=== PATIENT | female | born 1995 | race Two or more races ===

== ENCOUNTER 2016-12-08 22:23 | Emergency (ER) | payer MEDICAID, OTHER ==
[~2016-12-08] VITALS: Ht 165.1 cm; Wt 102.1 kg
[2016-12-08 23:02] VITALS: BP 145/70
== END 2016-12-09 02:30 | disposition left against medical advice (07) ==
LOC: ER 22:27
DX: M54.5 Low back pain (principal); Z53.21 Procedure and treatment not carried out due to patient leaving prior to being seen by health care provider
CPT/HCPCS: 82962

== ENCOUNTER 2016-12-09 22:21 | Emergency (ER) | payer MEDICAID ==
[~2016-12-09] VITALS: Ht 175.3 cm; Wt 102.1 kg
[2016-12-09 23:04] LABS: Basophils # (auto) 0 uL; Basophils % (auto) 0.1 % (0.0-2.0); DEFINITIVE VIEW TRANSMISSION; Eosinophils # (auto) 0 uL; Eosinophils % (auto) 0.1 % (0.0-7.0); Hematocrit 37.8 % (36.0-46.0); Hemoglobin 12.5 g/dL (12.2-16.2); Lymphocytes # (auto) 1.7 uL; Lymphocytes % (auto) 12.5 % (10.0-50.0); Mean Corpuscular Hemoglobin 26.5 pg (28.0-32.0); Mean Corpuscular Volume 80.2 fL (80.0-100.0); Monocytes # (auto) 1.8 uL; Monocytes % (auto) 12.9 % (0.0-12.0); Neutrophils # (auto) 10.1 uL; Neutrophils % (auto) 74.4 % (37.0-80.0); Platelet Count (auto) 271 10^3/uL (140-450); Red Cell Distribution Width 14.7 % (11.6-16.0); White Blood Cell 13.6 10^3/uL (4.4-10.8)
[2016-12-09 23:14] LABS: Albumin 3.3 g/dL (3.4-5.0); BUN/Creatinine Ratio 9.3; Calcium 8.5 mg/dL (8.5-10.1); Potassium 3.7 mmol/L (3.5-5.1)
[2016-12-09 23:16] LABS: Urine Bilirubin Negative (Negative); Urine Blood TRACE /uL (Negative); Urine Color Yellow (Yellow); Urine Ketone Negative (Negative); Urine Nitrite Negative (Negative); Urine RBC 2 /hpf (0 - 4); Urine Squamous Epithelial Cell FEW /hpf (<5); Urine Urobilinogen Normal (Negative); Urine WBC Clumps PRESENT /hpf (None Seen)
[2016-12-09 23:17] LABS: Bilirubin, Total 0.7 mg/dL (0.2-1.0); Total Protein 7.9 g/dL (6.4-8.2)
[2016-12-09 23:17] LABS: Urine Glucose 2+ mg/dL (Normal)
[2016-12-09 23:47] VITALS: BP 105/68
[2016-12-10] MEDS ORDERED: SODIUM CHLORIDE 0.9% 1,000 ML IV ONE ×2 (00:15)
[2016-12-10] MEDS ORDERED: cefTRIAXone 1GM/50ML D5W 50 ML IV ONE (00:15)
== END 2016-12-10 02:06 | disposition home or self-care (01) ==
LOC: ER 22:25
DX: N93.0 Postcoital and contact bleeding (principal); E10.65 Type 1 diabetes mellitus with hyperglycemia; R81 Glycosuria
CPT/HCPCS: 36415; 74176; 80053; 81001; 81025; 82150; 85025; 96365; 99285; J0696; J7030

== ENCOUNTER 2016-12-28 14:14 | Emergency (ER) | payer OTHER, MEDICAID ==
[~2016-12-28] VITALS: Ht 172.7 cm; Wt 102.1 kg
[2016-12-28 14:40] VITALS: BP 120/71
== END 2016-12-28 18:00 | disposition left against medical advice (07) ==
LOC: ER 14:17
DX: N76.0 Acute vaginitis (principal); Z53.21 Procedure and treatment not carried out due to patient leaving prior to being seen by health care provider

== ENCOUNTER 2017-04-18 13:00 | Emergency (ER) | payer OTHER, MEDICAID ==
[~2017-04-18] VITALS: Ht 175.3 cm; Wt 102.1 kg
[2017-04-18 13:11] VITALS: BP 103/63
[2017-04-18] MEDS ORDERED: LIDOCAINE 1% HCL (LOCAL ANESTH.) INJ 20ML MDV IJ ONE (15:45)
[2017-04-18] MEDS ORDERED: ETHYL CHLORIDE SPRAY TOP ONE (15:45)
== END 2017-04-18 16:07 | disposition home or self-care (01) ==
LOC: ER 13:02 → EDBD 13:02 → ER 16:07
DX: L02.411 Cutaneous abscess of right axilla (principal)
CPT/HCPCS: 10060; 99283; J2001

== ENCOUNTER 2017-04-20 14:58 | Emergency (ER) | payer OTHER, MEDICAID ==
[~2017-04-20] VITALS: Ht 175.3 cm; Wt 102.1 kg
[2017-04-20 15:15] VITALS: BP 104/50
== END 2017-04-20 16:05 | disposition home or self-care (01) ==
LOC: ER 15:03
DX: L02.411 Cutaneous abscess of right axilla (principal); E11.9 Type 2 diabetes mellitus without complications

== ENCOUNTER 2017-08-27 16:54 | Emergency (ER) | payer MEDICAID ==
[~2017-08-27] VITALS: Ht 175.3 cm; Wt 102.1 kg
[2017-08-27 17:51] LABS: Basophils # (auto) 0.1 uL; Basophils % (auto) 0.4 % (0.0-2.0); Eosinophils # (auto) 0 uL; Eosinophils % (auto) 0.2 % (0.0-7.0); Hematocrit 43.1 % (36.0-46.0); Hemoglobin 14.3 g/dL (12.2-16.2); Lymphocytes # (auto) 1.7 uL; Mean Corpuscular Hemoglobin 28.7 pg (28.0-32.0); Mean Corpuscular Hgb Conc. 33.1 g/dL (32.0-36.0); Mean Corpuscular Volume 86.6 fL (80.0-100.0); Mean Platelet Volume 8.9 fL (6.9-10.8); Monocytes # (auto) 0.9 uL; Monocytes % (auto) 6.7 % (0.0-12.0); Neutrophils # (auto) 10.5 uL; Neutrophils % (auto) 79.7 % (37.0-80.0); Platelet Count (auto) 275 10^3/uL (140-450); Red Cell Distribution Width 13.4 % (11.8-14.3); White Blood Cell 13.2 10^3/uL (4.4-10.8)
[2017-08-27 18:16] LABS: Bilirubin, Total 0.4 mg/dL (0.2-1.0); Calcium 9.3 mg/dL (8.5-10.1); Potassium 3.8 mmol/L (3.5-5.1); Total Protein 8.5 g/dL (6.4-8.2)
[2017-08-27] MEDS ORDERED: InsuLIN REG 1unit/0.01ml Soln (100units/ml) IV ONE (19:00)
[2017-08-27] MEDS ORDERED: SODIUM CHLORIDE 0.9% 1,000 ML IV ONE (19:00)
[2017-08-27 20:21] LABS: Urine Bilirubin Negative (Negative); Urine Blood Negative /uL (Negative); Urine Color Yellow (Yellow); Urine Glucose 4+ mg/dL (Normal); Urine Ketone 3+ (Negative); Urine Nitrite POSITIVE (Negative); Urine RBC 10 /hpf (0 - 4); Urine Squamous Epithelial Cell FEW /hpf (<5); Urine Urobilinogen Normal (Negative)
[2017-08-27] MEDS ORDERED: cefTRIAXone 1GM/50ML D5W 50 ML IV ONE (21:15)
[2017-08-28 01:55] VITALS: BP 138/71
== END 2017-08-28 02:17 | disposition home or self-care (01) ==
LOC: ER 17:12
DX: E11.10 Type 2 diabetes mellitus with ketoacidosis without coma (principal); N39.0 Urinary tract infection, site not specified; R42 Dizziness and giddiness; Z79.4 Long term (current) use of insulin
CPT/HCPCS: 36415; 71010; 80053; 81001; 81025; 82010; 82962; 85025; 93005; 96361; 96365; 96375; 99285; J0696; J1815; J7030

== ENCOUNTER 2018-08-29 08:53 | Emergency (ER) | payer MEDICAID ==
[~2018-08-29] VITALS: Ht 175.3 cm; Wt 102.1 kg
[2018-08-29 09:56] VITALS: BP 121/73
== END 2018-08-29 13:03 | disposition home or self-care (01) ==
LOC: ER 08:53
DX: L73.9 Follicular disorder, unspecified (principal); B35.3 Tinea pedis; B07.8 Other viral warts; E11.9 Type 2 diabetes mellitus without complications

== ENCOUNTER 2020-09-20 10:22 | Emergency (ER) | payer MEDICAID ==
[~2020-09-20] VITALS: Ht 175.3 cm; Wt 111.1 kg
[2020-09-20 10:25] VITALS: BP 124/76
== END 2020-09-20 13:11 | disposition home or self-care (01) ==
LOC: ER 10:22
DX: O26.893 Other specified pregnancy related conditions, third trimester (principal); L73.2 Hidradenitis suppurativa; Z3A.34 34 weeks gestation of pregnancy